=== PATIENT | female | born 2005 | race Caucasian/White ===

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

== ENCOUNTER 2023-02-16 12:16 | Emergency (ER) | payer BC ==
--- NOTE | 2023-02-16 13:08 | ED ---
General Adult HPI - General Chief complaint: ENT Stated complaint: ear pain Time Seen by Provider: 02/16/23 12:35 Source: patient, family, RN notes reviewed Mode of arrival: ambulatory Limitations: no limitations - History of Present Illness Initial comments: 17-year-old female with no significant past medical history presents to the emergency department with a chief complaint of left ear pain. Patient reports she has had a left ear infection for 2 weeks. She was originally was started on Augmentin and finish her antibiotics. She reports that her symptoms did not resolve. She reports that she saw her primary care physician yesterday who prescribed her another round of Augmentin. Today she reports worsening left ear pain. She denies fevers, cough, nausea, vomiting, chest pain, shortness of breath. She is up-to-date on vaccinations. - Related Data Allergies Allergy/AdvReac Type Severity Reaction Status Date / Time No Known Allergies Allergy Verified 02/16/23 12:33 Review of Systems ROS Statement: Those systems with pertinent positive or pertinent negative responses have been documented in the HPI. ROS Other: All systems not noted in ROS Statement are negative. Past Medical History Past Medical History: No Reported History Past Surgical History: Orthopedic Surgery General Exam - General Exam Comments Initial Comments: General: Alert, in no acute distress Head: atraumatic normocephalic. Eyes PERRL, EOMI intact, mucous membranes moist, left TM is ruptured with small amount of drainage Respiratory: Lungs clear to auscultation bilaterally Cardiovascular: Heart rate regular rate and rhythm Abdominal: Soft without guarding or rebound Extremities: Normal inspection with full range of motion and normal capillary refill Neuroogic: alert and oriented 3, CN II-XII intact, able to ambulate with steady gait Skin: warm dry and intact with normal color Limitations: no limitations Course Vital Signs 02/16/23 02/16/23 12:29 13:18 Temperature 98.9 F 98.4 F Pulse Rate 112 H 111 H Respiratory 20 16 Rate Blood Pressure 160/90 152/86 O2 Sat by Pulse 98 99 Oximetry Medical Decision Making - Medical Decision Making Was pt. sent in by a medical professional or institution (, PA, PIPE SMOKER MACHINE OPERATOR, urgent care, hospital, or usp...) When possible be specific @ -[No] Did you speak to anyone other than the patient for history (EMS, parent, family, police, friend...)? What history was obtained from this source @ -[No] Did you review nursing and triage notes (agree or disagree)? Why? @ -[I reviewed and agree with nursing and triage notes] Were old charts reviewed (outside hosp., previous admission, EMS record, old EKG, old radiological studies, urgent care reports/EKG's, usp records)? Report findings @ -[No old charts were reviewed] Differential Diagnosis (chest pain, altered mental status, abdominal pain women, abdominal pain men, vaginal bleeding, weakness, fever, dyspnea, syncope, headache, dizziness, GI bleed, back pain, seizure, CVA, palpatations, mental health, musculoskeletal)? @ -[not applicable] EKG interpreted by me (3pts min.). @ -[As above] X-rays interpreted by me (1pt min.). @ -[None done] CT interpreted by me (1pt min.). @ -[None done] U/S interpreted by me (1pt. min.). @ -[None done] What testing was considered but not performed or refused? (CT, X-rays, U/S, labs)? Why? @ -[None] What meds were considered but not given or refused? Why? @ -[None] Did you discuss the management of the patient with other professionals (professionals i.e. , PA, PIPE SMOKER MACHINE OPERATOR, lab, RT, psych nurse, social scientist, brake assembler, teacher, court security officer, leather case finisher)? Give summary @ -[No] Was smoking cessation discussed for >3mins.? @ -[No] Was critical care preformed (if so, how long)? @ -[No] Were there social determinants of health that impacted care today? How? (Homelessness, low income, unemployed, alcoholism, drug addiction, transportation, low edu. Level, literacy, decrease access to med. care, retirement, rehab)? @ -[No] Was there de-escalation of care discussed even if they declined (Discuss DNR or withdrawal of care, Hospice)? DNR status @ -[No] What co-morbidities impacted this encounter? (DM, HTN, Smoking, COPD, CAD, Cancer, CVA, ARF, Chemo, Hep., AIDS, mental health diagnosis, sleep apnea, morbid obesity)? @ -[None] Was patient admitted / discharged? Hospital course, mention meds given and route, prescriptions, significant lab abnormalities, going to OR and other pertinent info. @ -[. This is a 17-year-old female who presents the emergency department with left ear pain. Patient had a thorough history and physical exam performed on the ED. Physical exam reveals a left ruptured TM. Patient is currently on Augmentin and ofloxacin otic drops. Patient is agreeable with the plan for discharge home. Discussed. She was given a referral for ENT physicians in the area. Case di scussed with Dr. Cohn [facility] who agrees with plan of care Undiagnosed new problem with uncertain prognosis? @ -[No] Drug Therapy requiring intensive monitoring for toxicity (Heparin, Nitro, Insulin, Cardizem)? @ -[No] Were any procedures done? @ -[No] Diagnosis/symptom? @ -Left ear pain -- Left tympanic membrane rupture Acute, or Chronic, or Acute on Chronic? @ -Acute Uncomplicated (without systemic symptoms) or Complicated (systemic symptoms)? @ -Uncomplicated Side effects of treatment? @ -[No] Exacerbation, Progression, or Severe Exacerbation? @ -[No] Poses a threat to life or bodily function? How? (Chest pain, [place], [place], pneumonia, PE, COPD, DKA, ARF, appy, cholecystitis, CVA, Diverticulitis, Homicidal, Suicidal, threat to staff... and all critical care pts) @ - Low likelihood Disposition Clinical Impression: Ruptured tympanic membrane, Left ear pain Disposition: HOME SELF-CARE Condition: Stable Instructions (If sedation given, give patient instructions): Earache (ED) Additional Instructions: Please take your antibiotics as prescribed These follow-up with ENT as needed Return to the nearest emergency department if symptoms worsen or persist Is patient prescribed a controlled substance at d/c from ED?: No Referrals: Tushar Fonseca MD [Primary Care Provider] - 1-2 days Sridhar Carmen MD [STAFF PHYSICIAN] - 1-2 days Judson Hough MD [STAFF PHYSICIAN] - 1-2 days Time of Disposition: 13:08
[2023-02-16 13:20] VITALS: BP 152/86; PULSE 111; RESP 16; TEMP 98.4
== END 2023-02-16 13:25 | disposition home or self-care (01) ==
LOC: EC 12:16
DX: H72.92 Unspecified perforation of tympanic membrane, left ear (principal)
CPT/HCPCS: 99282

== ENCOUNTER → 2023-12-02 | Outpatient (CLI) | payer BC ==
--- NOTE | 2023-12-02 12:53 | MR ---
EXAMINATION TYPE: MR knee RT wo con DATE OF EXAM: 12/02/2023 COMPARISON: None HISTORY: Rt knee pain TECHNIQUE: Multiplanar, multisequence imaging of the right knee is performed without IV contrast. FINDINGS: There is no bone contusion or fracture. There is minimal fluid in the joint space. There is soft tiss ue edema in the medial aspect of the visualized distal thigh and proximal medial leg. There is a collection of small cysts posterior to the medial aspect of the knee adjacent to the attac hment of the medial head of the gastrocnemius muscle consistent with a gastrocnemius ganglion. The cruciate and collateral ligaments are intact. There is no abnormality of the patellar or quadrice ps tendons. There is no meniscal tear. The articular cartilages are normal. IMPRESSION: 1. Edema in the medial soft tissues as described above.. 2. Ganglion cyst of the medial gastrocnemius muscle. 3. No meniscal or ligamentous injury. 4. No bone contusion or fracture.
== END | disposition home or self-care (01) ==
LOC: RADMRIMAIN 06:04
PROVIDERS: ATTEND Family Medicine
DX: S83.281A Other tear of lateral meniscus, current injury, right knee, initial encounter (principal); M67.461 Ganglion, right knee; R60.9 Edema, unspecified; X58.XXXA Exposure to other specified factors, initial encounter